=== PATIENT | female | born 1975 | race Caucasian/White ===

== ENCOUNTER 2021-12-04 23:41 | Emergency (ER) | payer MEDICAID ==
[~2021-12-04] VITALS: Ht 165.1 cm; Wt 62.0 kg
[2021-12-04 23:47] VITALS: BP 159/75
== END 2021-12-05 02:50 | disposition left against medical advice (07) ==
LOC: ER 23:41
DX: Z53.21 Procedure and treatment not carried out due to patient leaving prior to being seen by health care provider (principal)